=== PATIENT | female | born 2000 | race Caucasian/White ===

== ENCOUNTER 2021-03-26 06:34 | Emergency (ER) | payer MEDICAID ==
[2021-03-26 06:45] VITALS: TEMP 98.8
[2021-03-26 07:33] LABS: COLLECTION METHOD CLEAN CATCH
[2021-03-26 07:45] LABS: BASO % 0.5 % (0.0-2.0); EOS # 0.1 (0.0-0.7); EOS % 0.6 % (0-4.0); GRAN # 5.4 (1.4-6.5); GRAN % 69.7 % (42.2-75.2); HEMOGLOBIN 12.3 g/dl (12.0-15.0); LYMPH # 1.9 (1.2-3.4); LYMPH % 24.1 % (20.0-51.0); MEAN CELL VOLUME 83 fl (80.0-95.0); MEAN CORPUSCULAR HEMOGLOBIN 30 pg (26.0-32.0); MEAN CORPUSCULAR HGB CONC 36 g/dl (33.0-37.0); MONO # 0.4 (0.1-0.6); MONO % 4.8 % (1.7-9.3); PLATELET COUNT 253 K/mm3 (130-400); RED BLOOD COUNT 4.06 M/mm3 (4.10-5.30); REDCELL DISTRIBUTION WIDTH-CV 12.3 % (11.5-14.5)
[2021-03-26 07:47] LABS: HEMATOCRIT 33.8 % (35.0-45.0)
[2021-03-26 07:48] LABS: MUCOUS Present /lpf; PH 5 (5-8); URINE APPEARANCE Hazy; URINE BACTERIA Rare /hpf; URINE BILIRUBIN Negative (NEGATIVE); URINE BLOOD Negative (NEGATIVE); URINE COLOR Amber; URINE GLUCOSE Negative (NEGATIVE); URINE KETONE 2+ (NEGATIVE); URINE LEUKOCYTE ESTERASE 1+ (NEGATIVE); URINE NITRATE Negative (NEGATIVE); URINE PROTEIN(semi-quant) 2+ (NEGATIVE)
[2021-03-26 07:52] LABS: ALBUMIN 4.2 gm/dL (3.5-5.0); BILIRUBIN,TOTAL 0.8 mg/dL (0.0-1.0); CALCIUM 9.3 mg/dL (8.4-10.2); CREATININE, serum 0.48 (0.52-1.25); POTASSIUM 3.6 mmol/L (3.4-5.0); TOTAL PROTEIN 7.2 gm/dL (6.4-8.2)
[2021-03-26] MEDS ORDERED: CEPHALEXIN500 M1 PO (08:17)
[2021-03-26 08:38] VITALS: BP 95/50; PULSE 78
== END 2021-03-26 08:38 | disposition home or self-care (01) ==
LOC: COL.ER 06:34
PROVIDERS: Emergency Medicine
DX: O21.0 Mild hyperemesis gravidarum (principal); O26.891 Other specified pregnancy related conditions, first trimester; R10.13 Epigastric pain; Z3A.10 10 weeks gestation of pregnancy
CPT/HCPCS: J2765; J7120

== ENCOUNTER 2021-03-27 06:51 | Emergency (ER) | payer MEDICAID ==
[~2021-03-27] VITALS: Ht 165.1 cm; Wt 59.1 kg
[~2021-03-27 06:51] MED LIST: CEPHALEXIN500 M1 PO
[2021-03-27 06:59] VITALS: TEMP 98.3
[2021-03-27 08:45] VITALS: BP 107/69; PULSE 89
[2021-03-28] MEDS ORDERED: ZOFRAN ODT4 MG PO ×2 (20:18→20:19)
== END 2021-03-27 08:45 | disposition home or self-care (01) ==
LOC: COL.ER 06:51
DX: O21.0 Mild hyperemesis gravidarum (principal); Z3A.10 10 weeks gestation of pregnancy; Z88.1 Allergy status to other antibiotic agents
CPT/HCPCS: J2765; J7120

== ENCOUNTER 2021-03-28 14:23 | Emergency (ER) | payer MEDICAID ==
[~2021-03-28] VITALS: Ht 152.4 cm; Wt 57.7 kg
[2021-03-28 15:21] VITALS: TEMP 98.3
[2021-03-28 16:43] LABS: BASO % 0.2 % (0.0-2.0); EOS % 0.2 % (0-4.0); GRAN # 9.5 (1.4-6.5); GRAN % 89.7 % (42.2-75.2); HEMOGLOBIN 12.9 g/dl (12.0-15.0); LYMPH # 0.8 (1.2-3.4); MEAN CELL VOLUME 83 fl (80.0-95.0); MEAN CORPUSCULAR HEMOGLOBIN 30 pg (26.0-32.0); MEAN CORPUSCULAR HGB CONC 36 g/dl (33.0-37.0); MONO # 0.2 (0.1-0.6); MONO % 1.6 % (1.7-9.3); PLATELET COUNT 261 K/mm3 (130-400); RED BLOOD COUNT 4.28 M/mm3 (4.10-5.30); REDCELL DISTRIBUTION WIDTH-CV 12.7 % (11.5-14.5)
[2021-03-28 16:46] LABS: ALBUMIN 4.4 gm/dL (3.5-5.0); BILIRUBIN,TOTAL 0.7 mg/dL (0.0-1.0); CALCIUM 9.2 mg/dL (8.4-10.2); CREATININE, serum 0.46 (0.52-1.25); POTASSIUM 3.8 mmol/L (3.4-5.0); TOTAL PROTEIN 7.7 gm/dL (6.4-8.2)
[2021-03-28 16:53] LABS: HEMATOCRIT 35.6 % (35.0-45.0)
[2021-03-28 17:07] LABS: COLLECTION METHOD CLEAN CATCH
[2021-03-28 17:17] LABS: MUCOUS Present /lpf; PH 5 (5-8); URINE APPEARANCE Cloudy; URINE BACTERIA Rare /hpf; URINE BILIRUBIN Negative (NEGATIVE); URINE BLOOD Negative (NEGATIVE); URINE COLOR Yellow; URINE GLUCOSE Negative (NEGATIVE); URINE KETONE 2+ (NEGATIVE); URINE LEUKOCYTE ESTERASE 1+ (NEGATIVE); URINE NITRATE Negative (NEGATIVE); URINE PROTEIN(semi-quant) 2+ (NEGATIVE); URINE RBC 0-2 /hpf; URINE UROBILINOGEN Negative (NEGATIVE)
[2021-03-28] MEDS ORDERED: ZOFRAN ODT4 MG PO ×2 (20:18→20:19)
[2021-03-28 20:32] VITALS: BP 118/70; PULSE 70
== END 2021-03-28 20:32 | disposition home or self-care (01) ==
LOC: COL.ER 14:23
PROVIDERS: Nurse Practitioner
DX: O21.0 Mild hyperemesis gravidarum (principal); Z3A.11 11 weeks gestation of pregnancy; Z88.1 Allergy status to other antibiotic agents
CPT/HCPCS: J2405; J2550; J7030

== ENCOUNTER 2021-09-06 05:49 | Outpatient (CLI) | payer MEDICAID ==
[~2021-09-06] VITALS: Ht 152.4 cm; Wt 61.8 kg
[~2021-09-06 05:49] MED LIST changes: +ZOFRAN ODT4 MG PO
--- NOTE | 2021-09-06 06:00 | NUR ---
G1 at 35 weeks gestation to LDR6 with boyfriend. She states that she went to the midnight service at [facility] and returned home around 0200. When she got home she started having contractions and back pain, she states that they have not gotten stronger but have continued to be regular. She reports good movement, denies leaking of fluid or vaginal bleeding. EFMs explained and applied, FHR 140 bpm and reactive, CTX q3 minutes per toco. VSS. SVE 2-3/75/-2. Plan of care reviewed.
[2021-09-06 06:10] VITALS: BP 116/68; PULSE 78; TEMP 97.3
[2021-09-06] MEDS ORDERED: PRENATAL (06:32)
--- NOTE | 2021-09-06 07:25 | NUR ---
Plan of care reviewed with betamethasone IM now and second dose tomorrow 09/07/21 morning discussed with pt and boyfriend at the bedside. Both verbalized an understanding, agreed with the plan and states no questions or concerns at this time.
[2021-09-06 07:40] VITALS: BP 108/68; PULSE 74
== END 2021-09-06 07:55 | disposition home or self-care (01) ==
LOC: LDRO 05:49
DX: O62.9 Abnormality of forces of labor, unspecified (principal); O26.893 Other specified pregnancy related conditions, third trimester; M54.9 Dorsalgia, unspecified; Z3A.35 35 weeks gestation of pregnancy
CPT/HCPCS: J0702

== ENCOUNTER 2021-09-07 07:38 | Outpatient (CLI) | payer MEDICAID ==
[~2021-09-07] VITALS: Ht 152.4 cm; Wt 61.8 kg
[~2021-09-07 07:38] MED LIST changes: +PRENATAL
--- NOTE | 2021-09-07 07:45 | NUR ---
0745- 35.1, G1L0 arrives on unit for second betamethasone injection. Ambulatory to LDR2 with SO. Reports normal movement. Denies LOF, VB, or regular contractions. 0745- EFM explained and placed. Assessment completed. VS obtained.
--- NOTE | 2021-09-07 08:07 | NUR ---
0807- Betamethasone 12mg given. See emar. 0815- Dr. Guevara at patient bedside. 0823- FHR reactive. EFM off. 0830- Discharge instructions reviewed with patient and SO who verbalize understanding. Ambulatory off unit.
[2021-09-07 08:30] VITALS: BP 108/61; PULSE 82
== END 2021-09-07 08:30 | disposition home or self-care (01) ==
LOC: LDRO 07:38
DX: O36.0130 Maternal care for anti-D [Rh] antibodies, third trimester, not applicable or unspecified (principal); Z3A.35 35 weeks gestation of pregnancy
CPT/HCPCS: J0702

== ENCOUNTER 2021-10-08 01:11 | Inpatient (IN) | payer MEDICAID ==
[~2021-10-08] VITALS: Ht 152.4 cm; Wt 64.5 kg
[2021-10-08] VITALS (30 sets, daily range): BP systolic 102–142; BP diastolic 52–75; PULSE 66–107; TEMP 98.1–98.7
[2021-10-08 02:16] LABS: BASO # 0.1 K/mm3 (0.0-0.2); BASO % 0.5 % (0.0-2.0); EOS # 0.1 K/mm3 (0.0-0.7); EOS % 0.9 % (0.0-4.0); GRAN # 8.2 K/mm3 (1.4-6.5); GRAN % 58.8 % (42.2-75.2); HEMOGLOBIN 12.1 g/dl (12.0-15.0); LYMPH # 4.7 K/mm3 (1.2-3.4); LYMPH % 33.7 % (20.0-51.0); MEAN CELL VOLUME 83 fl (80.0-95.0); MEAN CORPUSCULAR HEMOGLOBIN 30 pg (26-32); MEAN CORPUSCULAR HGB CONC 36 g/dl (33.0-37.0); MEAN PLATELET VOLUME 11.1 fl (7.4-10.4); MONO # 0.8 K/mm3 (0.1-0.6); MONO % 5.7 % (1.7-9.3); PLATELET COUNT 207 K/mm3 (130-400); RED BLOOD COUNT 4.09 M/mm3 (4.10-5.30); REDCELL DISTRIBUTION WIDTH-CV 12.7 % (11.5-14.5)
[2021-10-08 02:17] LABS: HEMATOCRIT 34.1 % (35.0-45.0)
--- NOTE | 2021-10-08 02:57 | NUR ---
C.Piter BOILERMAKER MECHANIC into room for epidural placement. Pt moved to edge of bed. See anesthesia record.
--- NOTE | 2021-10-08 03:30 | NUR ---
Pt reports " I think I have to go to the bathroom" SVE ant rim with bulging bag. Pt unaware of contractions and states "I didn't really feel very much with that check" Nunez catheter placed.. When returned to semi-fowlers 200cc emesis.
--- NOTE | 2021-10-08 10:05 | NUR ---
0738 A [place] SVE C/100/0 Dr Guevara on unit reviewing FHR strip. Bag examed and ruptured. SVE by Dr Guevara 10/100/+2. 0755 Patient begins pushing with contractions. This RN at bedside. 0829 Spontaneous vaginal delivery of viable female . bulb suctioned and stimulated. Cord clamped and cut. Infant to mother's chest. TysonJarocho Allan takes over care of . taken to warmer to be stimulated and suctioned. 0832 Spontaneous delivery of placenta. Pitocin bolus started per protocol. 1st degree perineal laceration repaired by Dr. Guevara. Fundal massage done. Midline/firm. Scant amt of bleeding noted. Safety precautions discussed. Erendira care done. Clean pad placed under patient. Plan of care discussed. Pt verbalizes understanding.
[2021-10-08] MEDS ORDERED: MOTRIN 800800 MG/TAB PO (16:29)
[2021-10-09 07:25] VITALS: BP 100/65; PULSE 62; TEMP 98.1
--- NOTE | 2021-10-09 09:52 | NUR ---
Initial visit attempt; Tunnel Elastic Operator Chainstitch left card of congratulations and God's blessings for the of their daughter. Family resting. Tunnel Elastic Operator Chainstitch left card letting family know of the availability of Spiritual Care at our hospital.
== END 2021-10-09 14:25 | disposition home or self-care (01) | DRG 807 ==
LOC: LDRO 01:11 → OB 01:20 → LDR 01:20 → OB 13:44
PROVIDERS: Obstetrics & Gynecology; ADMIT Obstetrics & Gynecology
PROC: 10E0XZZ Delivery of Products of Conception, External Approach (ICD-10-PCS; principal; 2021-10-08)
PROC: 0HQ9XZZ Repair Perineum Skin, External Approach (ICD-10-PCS; 2021-10-08)
PROC: 0UQMXZZ Repair Vulva, External Approach (ICD-10-PCS; 2021-10-08)
DX: O77.0 Labor and delivery complicated by meconium in amniotic fluid (principal); Z37.0 Single live birth; O76 Abnormality in fetal heart rate and rhythm complicating labor and delivery; O62.1 Secondary uterine inertia; O70.0 First degree perineal laceration during delivery; Z3A.39 39 weeks gestation of pregnancy
CPT/HCPCS: J2590; J7120

== ENCOUNTER 2021-10-10 23:03 | Emergency (ER) | payer MEDICAID ==
[~2021-10-10] VITALS: Ht 152.4 cm; Wt 63.6 kg
[~2021-10-10 23:03] MED LIST changes: +MOTRIN 800800 MG/TAB PO
[2021-10-10 23:43] LABS: COLLECTION METHOD CLEAN CATCH
[2021-10-11 00:03] LABS: ALBUMIN 2.8 gm/dL (3.5-5.0); BILIRUBIN,TOTAL 0.4 mg/dL (0.2-1.2); C-REACTIVE PROTEIN 6.68 mg/dL (0.00-0.50); CALCIUM 8.4 mg/dL (8.4-10.2); CREATININE, serum 0.71 mg/dL (0.57-1.11); POTASSIUM 4.2 mmol/L (3.5-4.5); TOTAL PROTEIN 6.3 gm/dL (6.2-8.1)
[2021-10-11 00:09] LABS: BUDDING YEAST Present (NOT PRESENT); MUCOUS Present (NOT PRESENT); PH 7 (5-8); URINE APPEARANCE Hazy (CLEAR/HAZY); URINE BACTERIA None Seen /hpf (NONE SEEN); URINE BILIRUBIN Negative (NEGATIVE); URINE BLOOD 3+ (NEGATIVE); URINE COLOR Yellow (YELLOW); URINE GLUCOSE Negative (NEGATIVE); URINE KETONE Negative (NEGATIVE); URINE LEUKOCYTE ESTERASE 3+ (NEGATIVE); URINE NITRATE Negative (NEGATIVE); URINE PROTEIN(semi-quant) 1+ (NEGATIVE); URINE RBC >50 /hpf (0-2); URINE UROBILINOGEN Negative (NEGATIVE)
[2021-10-11 00:32] LABS: BASO % 0.3 % (0.0-2.0); EOS # 0.2 K/mm3 (0.0-0.7); EOS % 1.1 % (0.0-4.0); GRAN # 11.6 K/mm3 (1.4-6.5); GRAN % 82.2 % (42.2-75.2); HEMOGLOBIN 12.2 g/dl (12.0-15.0); LYMPH # 1.7 K/mm3 (1.2-3.4); LYMPH % 12.4 % (20.0-51.0); MEAN CELL VOLUME 85 fl (80.0-95.0); MEAN CORPUSCULAR HEMOGLOBIN 30 pg (26-32); MEAN CORPUSCULAR HGB CONC 36 g/dl (33.0-37.0); MEAN PLATELET VOLUME 11.1 fl (7.4-10.4); MONO # 0.5 K/mm3 (0.1-0.6); MONO % 3.4 % (1.7-9.3); PLATELET COUNT 215 K/mm3 (130-400); RED BLOOD COUNT 4.05 M/mm3 (4.10-5.30); REDCELL DISTRIBUTION WIDTH-CV 13.1 % (11.5-14.5)
[2021-10-11 00:33] LABS: HEMATOCRIT 34.4 % (35.0-45.0)
[2021-10-11] MEDS ORDERED: CEPHALEXIN500 M1 PO (01:36)
[2021-10-11 02:25] VITALS: BP 116/71; PULSE 92; TEMP 98.7
== END 2021-10-11 02:30 | disposition home or self-care (01) ==
LOC: COL.ER 23:03
PROVIDERS: Emergency Medicine
DX: O86.20 Urinary tract infection following delivery, unspecified (principal); R00.0 Tachycardia, unspecified; D72.829 Elevated white blood cell count, unspecified; Z20.822 Contact with and (suspected) exposure to COVID-19; Z88.1 Allergy status to other antibiotic agents
CPT/HCPCS: J0692; J1885; J7030

== ENCOUNTER 2021-10-11 20:09 | Emergency (ER) | payer MEDICAID ==
[~2021-10-11] VITALS: Ht 165.1 cm; Wt 61.4 kg
[2021-10-11 21:02] LABS: BASO % 0.4 % (0.0-2.0); EOS % 0.1 % (0.0-4.0); GRAN # 6.9 K/mm3 (1.4-6.5); GRAN % 88.9 % (42.2-75.2); HEMOGLOBIN 11.4 g/dl (12.0-15.0); LYMPH # 0.6 K/mm3 (1.2-3.4); LYMPH % 7.3 % (20.0-51.0); MEAN CELL VOLUME 85 fl (80.0-95.0); MEAN CORPUSCULAR HEMOGLOBIN 30 pg (26-32); MEAN CORPUSCULAR HGB CONC 35 g/dl (33.0-37.0); MEAN PLATELET VOLUME 10.2 fl (7.4-10.4); MONO # 0.2 K/mm3 (0.1-0.6); MONO % 2.5 % (1.7-9.3); PLATELET COUNT 154 K/mm3 (130-400); RED BLOOD COUNT 3.84 M/mm3 (4.10-5.30); REDCELL DISTRIBUTION WIDTH-CV 13.3 % (11.5-14.5)
[2021-10-11 21:03] LABS: HEMATOCRIT 32.8 % (35.0-45.0)
[2021-10-11 21:21] LABS: ALBUMIN 2.6 gm/dL (3.5-5.0); BILIRUBIN,TOTAL 0.8 mg/dL (0.2-1.2); C-REACTIVE PROTEIN 17.79 mg/dL (0.00-0.50); CALCIUM 8.1 mg/dL (8.4-10.2); CREATININE, serum 0.68 mg/dL (0.57-1.11); POTASSIUM 3.7 mmol/L (3.5-4.5); TOTAL PROTEIN 5.9 gm/dL (6.2-8.1)
[2021-10-11 21:36] VITALS: TEMP 101
[2021-10-11 21:53] VITALS: BP 129/84; PULSE 89
== END 2021-10-11 21:53 | disposition home or self-care (01) ==
LOC: COL.ER 20:09
PROVIDERS: Nurse Practitioner
DX: N39.0 Urinary tract infection, site not specified (principal); Z88.1 Allergy status to other antibiotic agents
CPT/HCPCS: J7030

== ENCOUNTER 2022-04-18 04:01 | Emergency (ER) | payer MEDICAID ==
[~2022-04-18] VITALS: Ht 152.4 cm; Wt 63.6 kg
[2022-04-18 04:10] VITALS: TEMP 98.1
[2022-04-18 04:20] LABS: BASO # 0.1 K/mm3 (0.0-0.2); BASO % 0.7 % (0.0-2.0); EOS # 0.3 K/mm3 (0.0-0.7); EOS % 3.1 % (0.0-4.0); GRAN # 3.6 K/mm3 (1.4-6.5); GRAN % 40.1 % (42.2-75.2); HEMATOCRIT 39.9 % (37.0-47.0); HEMOGLOBIN 14.4 g/dl (12.5-16.0); LYMPH # 4.5 K/mm3 (1.2-3.4); LYMPH % 49.9 % (20.0-51.0); MEAN CELL VOLUME 84 fl (80.0-100.0); MEAN CORPUSCULAR HEMOGLOBIN 30 pg (27-31); MEAN CORPUSCULAR HGB CONC 36 g/dl (33.0-37.0); MEAN PLATELET VOLUME 10.5 fl (7.4-10.4); MONO # 0.5 K/mm3 (0.1-0.6); PLATELET COUNT 304 K/mm3 (130-400); RED BLOOD COUNT 4.74 M/mm3 (4.10-5.30); REDCELL DISTRIBUTION WIDTH-CV 11.9 % (11.5-14.5)
[2022-04-18 04:38] LABS: BILIRUBIN,TOTAL 0.3 mg/dL (0.2-1.2); CALCIUM 9.2 mg/dL (8.4-10.2); CREATININE, serum 0.79 mg/dL (0.57-1.11); POTASSIUM 3.3 mmol/L (3.5-4.5); TOTAL PROTEIN 7.3 gm/dL (6.2-8.1)
[2022-04-18 04:42] LABS: COLLECTION METHOD CLEAN CATCH
[2022-04-18 04:54] LABS: MUCOUS Present (NOT PRESENT); PH 5 (5-8); URINE APPEARANCE Hazy (CLEAR/HAZY); URINE BACTERIA None Seen /hpf (NONE SEEN); URINE BLOOD 2+ (NEGATIVE); URINE COLOR Yellow (YELLOW); URINE GLUCOSE Negative (NEGATIVE); URINE KETONE Negative (NEGATIVE); URINE NITRATE Negative (NEGATIVE); URINE PROTEIN(semi-quant) Negative (NEGATIVE); URINE UROBILINOGEN Negative (NEGATIVE)
[2022-04-18] MEDS ORDERED: ZOFRAN ODT4 MG PO (06:22)
[2022-04-18 07:20] VITALS: BP 115/95; PULSE 87
== END 2022-04-18 07:40 | disposition home or self-care (01) ==
LOC: COL.ER 04:01
PROVIDERS: Emergency Medicine
DX: K80.50 Calculus of bile duct without cholangitis or cholecystitis without obstruction (principal); Z32.02 Encounter for pregnancy test, result negative; Z28.310 Unvaccinated for COVID-19
CPT/HCPCS: J0696; J2270; J2405; J7120; Q9967

== ENCOUNTER → 2022-04-19 | Outpatient (CLI) | payer MEDICAID ==
[~2022-04-19] MED LIST changes: +NORCO 325 MG-51 TAB PO
== END ==
LOC: COL.RAD 08:07
DX: K80.20 Calculus of gallbladder without cholecystitis without obstruction (principal)

== ENCOUNTER 2022-05-14 05:46 | Day surgery (SDC) | payer MEDICAID ==
[2022-05-14] VITALS (8 sets, daily range): BP systolic 105–122; BP diastolic 56–86; PULSE 88–119; TEMP 98.5–98.7
[~2022-05-14] VITALS: Ht 152.4 cm; Wt 69.1 kg
[~2022-05-14 05:46] MED LIST changes: -NORCO 325 MG-51 TAB PO
[2022-05-14] MEDS ORDERED: NORCO 325 MG-51 TAB PO (08:08)
--- NOTE | 2022-05-14 10:10 | NUR ---
PATIENT RETURNS TO ROOM 1 PER CART FROM PACU ACCOMPANIED BY BHARAT KYLE AND IS AWAKE AND ALERT. TEMP 98.9 AND ROOM AIR SATS 99%. BANDAIDS X4 ON ABDOMEN CLEAN AND DRY. DROWSY AND AROUSES TO VERBAL STIMULI. FRIEND IN ROOM. CALL LIGHT IN REACH AND SIDERAILS UP X2. IV FLUIDS INFUSING AT 125CC/HR AND SITE IS FREE OF REDNESS OR SWELLING.
--- NOTE | 2022-05-14 10:25 | NUR ---
CONTINUES TO REST WITHOUT COMPLAINTS AND NOT DISTURBED.
--- NOTE | 2022-05-14 10:40 | NUR ---
MORE AWAKE NOW BUT RETURNS EASILY TO SLEEP.
--- NOTE | 2022-05-14 10:55 | NUR ---
NOT DISTURBED AND CONTINUES TO REST.
--- NOTE | 2022-05-14 11:10 | NUR ---
BANDAIDS DRY ON THE ABDOMEN X4.
--- NOTE | 2022-05-14 11:40 | NUR ---
CONTINUES TO REST WITHOUT COMPLAINTS OF PAIN OR NAUSEA. STATES THAT SHE FEELS SLEEPY.
--- NOTE | 2022-05-14 12:15 | NUR ---
AWAKE AND DRINKING GRAPE JUICE AND WATER. OFFERS NO COMPLAINTS OF PAIN.
--- NOTE | 2022-05-14 13:10 | NUR ---
ASSISTED UP TO THE BATHROOM. GAIT STEADY. IV TO INT. VOIDS AND RETURNS TO ROOM. STATES THAT SHE IS HAVING PAIN AT 3/10. EATING APPLESAUCE NOW. WILL MEDICATE WITH NORCO AND PATIENT AGREES TO THIS.
--- NOTE | 2022-05-14 13:23 | NUR ---
MEDICATED WITH NORCO 5MG ONE TAB. DENIES NAUSEA.
--- NOTE | 2022-05-14 14:00 | NUR ---
GIVEN DISMISSAL INSTRUCTIONS AND VOICES UNDERSTANDING OF THESE. INSTRUCTED THAT PAIN MEDICATION IS AVAILABLE TO HEEL COVERER MACHINE OPERATOR AT PHARMACY.
--- NOTE | 2022-05-14 14:13 | NUR ---
PATIENT DISMISSED TO HOME DRIVEN BY FRIEND PER PRIVATE VEHICLE AND TAKEN TO VEHICLE PER WHEELCHAIR AND ASSISTED INTO CAR WITH INSTRUCTIONS IN HAND.
== END 2022-05-14 14:13 | disposition home or self-care (01) ==
LOC: SDCO 05:46
DX: K80.10 Calculus of gallbladder with chronic cholecystitis without obstruction (principal)
CPT/HCPCS: J0690; J1100; J1170; J1885; J2250; J2405; J2550; J2704; J3010; J7120

== ENCOUNTER 2023-10-06 19:05 | Outpatient (CLI) | payer MEDICAID ==
[~2023-10-06] VITALS: Ht 152.4 cm; Wt 65.5 kg
[~2023-10-06 19:05] MED LIST changes: +NORCO 325 MG-51 TAB PO
--- NOTE | 2023-10-06 19:15 | NUR ---
1914- PT PRESENTS TO LDR COMPLAINING OF LEAKING FLUID AND CRAMPING, AMBULATORY TO ROOM LR6, CHANGED INTO GOWN. 1924- EFM X2 APPLIED. PT STATES SHE HAS HAD MORE DISCHARGE THAN NORMAL TODAY, DENIES VAGINAL BLEEDING. STATES SHE IS HAVING SOME CRAMPING BUT NO REGULAR CONTRACTIONS. ALSO STATES SHE IS FEELING BABY MOVE NORMALLY. PLAN OF CARE FOR LABOR CHECK DISCUSSED AND PT IS AGREEABLE AND CONSENTS TO VAGINAL EXAMS. 1929- AMNITRACE IS NEGATIVE, NO POOLING OF FLUID NOTED. SVE BY THIS NURSE . DISCUSSED WATCHING THE MONITOR FOR AN HOUR AND RECHECKING CERVIX. PT IS AGREEABLE WITH THIS. 1934- NURSING ADMISSION HISTORY AND ASSESSMENT COMPLETE. 1941- DR CHRISTIAN CALLS AND IS UPDATED CHARTED. ORDERS RECIEVED. 2011- PT OFF MONITOR TO GO TO BATHROOM. 2017- PT BACK TO BED. 2039- PT STATES HER CRAMPING IS THE SAME. SVE BY THIS NURSE WITH NO CHANGED. DISCUSSED WITH PT PLAN OF CARE FOR DISMISSAL AND SHE IS AGREEABLE WITH THIS. 2041- PT OFF MONITORS FOR DISMISSAL. 2099- DISMISSAL INSTRUCTIONS GIVEN. PT VERBALIZES UNDERSTANDING AND SIGNS PAPERWORK. PT DISMISSED TO HOME AMBULATORY ACCOMPANIED BY BOYFRIEND.
[2023-10-06 20:00] VITALS: BP 115/56; PULSE 89; TEMP 98.5
== END 2023-10-06 21:00 | disposition home or self-care (01) ==
LOC: LDRO 19:05
DX: O42.913 Preterm premature rupture of membranes, unspecified as to length of time between rupture and onset of labor, third trimester (principal); Z3A.36 36 weeks gestation of pregnancy

== ENCOUNTER 2023-10-15 23:09 | Inpatient (IN) | payer MEDICAID ==
[~2023-10-15] VITALS: Ht 152.4 cm; Wt 66.8 kg
[2023-10-15 23:45] VITALS: BP 124/72; PULSE 107; TEMP 99.3
[2023-10-15] MEDS ORDERED: LR 1,000 ML IV SCH (23:45)
[2023-10-16] VITALS (16 sets, daily range): BP systolic 94–134; BP diastolic 22–69; PULSE 70–107; TEMP 98.2–98.4
--- NOTE | 2023-10-16 | NUR ---
PT REQUESTING EPIDURAL AT THIS TIME.
[2023-10-16 00:07] LABS: BASO # 0.1 K/mm3 (0.0-0.2); BASO % 0.6 % (0.0-2.0); EOS # 0.1 K/mm3 (0.0-0.7); EOS % 1.5 % (0.0-4.0); GRAN % 63.4 % (42.2-75.2); HEMOGLOBIN 12.3 g/dl (12.5-16.0); LYMPH # 2.8 K/mm3 (1.2-3.4); LYMPH % 28.9 % (20.0-51.0); MEAN CELL VOLUME 84 fl (80.0-100.0); MEAN CORPUSCULAR HEMOGLOBIN 30 pg (27-31); MEAN CORPUSCULAR HGB CONC 35 g/dl (33.0-37.0); MEAN PLATELET VOLUME 11.5 fl (7.4-10.4); MONO # 0.5 K/mm3 (0.1-0.6); MONO % 5.3 % (1.7-9.3); PLATELET COUNT 199 K/mm3 (130-400); RED BLOOD COUNT 4.17 M/mm3 (4.10-5.30); REDCELL DISTRIBUTION WIDTH-CV 12.7 % (11.5-14.5)
[2023-10-16 00:11] LABS: HEMATOCRIT 35.1 % (37.0-47.0)
[2023-10-16] MEDS ORDERED: Ondansetron 4 MG/2 ML VIAL IV PRN ×2 (00:15→00:30)
--- NOTE | 2023-10-16 00:20 | NUR ---
PT SITTING UPRIGHT ON THE BEDSIDE. JEZ COVARRUBIAS IN ROOM TO PROVIDE REQUESTED EPIDURAL. THE PATIENT IS PREPPED AND SINGLE SHOT ADMINISTERED AT 0020. PT TOLERATED PROCEDURE AND REPOSITIONED TO WEDGE LEFT. NO OTHER CONCERNS.
[2023-10-16] MEDS ORDERED: ROPivacaine PF 0.2% 200 ML IV ONE (00:29)
[2023-10-16] MEDS ORDERED: Naloxone 0.4 MG/ML VIAL IV PRN ×2 (00:30→03:45)
[2023-10-16] MEDS ORDERED: diphenhydrAMINE 25 MG CAP PO PRN (00:30)
[2023-10-16] MEDS ORDERED: diphenhydrAMINE 50 MG/ML 1 ML VIAL IV PRN (00:30)
[2023-10-16] MEDS ORDERED: ePHEDrine 50 MG/10 ML VIAL IV PRN (00:30)
[2023-10-16] MEDS ORDERED: LR & Oxytocin 500 ML IV SCH (01:00)
--- NOTE | 2023-10-16 01:10 | NUR ---
0033: SVE PER THIS RN, ANTERIOR LIP. NOTIFIED PHYSICIAN OF PT STATUS AND THE URGE TO PUSH. SEE PHYSICIAN NOTIFICATION. 0050: ON THE UNIT. 0053: AT BEDSIDE, SVE: COMPLETE +2. PREPARING PT FOR DELIVERY. 0058: PUSHING BEGINS WITH . GOOD MATERNAL EFFORT. 0102: OF VIABLE MALE INFANT. PLACED ON MATERNAL ABD. DELAYED CORD CLAMP X2 PER . FOB CUT THE CORD. MOVED UP TO MATERNAL CHEST. CARE OF INFANT ASSUMED BY SAROJ SOUZA. CORD BLOOD OBTAINED AND SENT TO LAB. 0110: OF INTACT PLACENTA. PITOCIN STARTED PER HOSPITAL PROTOCOL AT 333MU/HR. ASSESSMENT OF PATIENT PER , PT IS INTACT. EPIDURAL PUMP TURNED OFF PER THIS RN. PERICARE PERFORMED PER THIS RN, PAD AND ICEPACK ON THE PERINEUM. WARM BLANKETS ON MOM AND . 0115: RECOVERY VITALS STARTED AT THIS TIME. NO OTHER CONCERNS REGARDING THIS PATIENT AT PRESENT TIME.
[2023-10-16] MEDS ORDERED: Magnes Hydrox (MOM) 80 MG/ML 30 ML CUP PO PRN (01:15)
[2023-10-16] MEDS ORDERED: Loratadine 10 MG TAB PO PRN (01:15)
[2023-10-16] MEDS ORDERED: oxyCODONE 5 MG TAB PO PRN (03:45)
[2023-10-16] MEDS ORDERED: Witch Hazel 50% Pads Bulk TUB TP PRN (03:45)
[2023-10-16] MEDS ORDERED: Measles/Mumps/Rubella Virus Vaccine Live w Diluent 0.5 ML VIAL SQ SCH (03:45)
[2023-10-16] MEDS ORDERED: Mag/Al Hydrox/Simeth Susp 30 ML CUP PO PRN (03:45)
[2023-10-16] MEDS ORDERED: Phenylephrine/Mineral Oil/Petrolatum 57 GM TUBE RC PRN (03:45)
--- NOTE | 2023-10-16 03:50 | NUR ---
PT AMBULATES TO THE BATHROOM. CLEAN GOWN ON, PERICARE COMPLETED. PT TRANSFERRED TO RM 208.
[2023-10-16] MEDS ORDERED: Ibuprofen 600 MG TAB PO SCH (04:00)
[2023-10-16] MEDS ORDERED: Acetaminophen 500 MG TAB PO SCH (04:00)
[2023-10-16] MEDS ORDERED: Sennosides/Docusate 8.6-50 MG TAB PO SCH (08:00)
--- NOTE | 2023-10-16 12:30 | NUR ---
THIS RN TAKES OVER CARE. THIS RN RECEIVED REPORT FROM KATHLEEN KYLE.
[2023-10-16] MEDS ORDERED: traZODone 50 MG TAB PO PRN (21:00)
[2023-10-17 09:00] VITALS: BP 112/78; PULSE 79; TEMP 98.2
[2023-10-17] MEDS ORDERED: Influenza Virus Vaccine, Quad '23-24 (6 MOS+) 0.5 ML SYRINGE IM SCH (09:00)
--- NOTE | 2023-10-17 10:10 | NUR ---
Initial visit; Parents thanked Services Mgr for offering congratulations and God's blessingss for the of their daughter. Services Mgr thanked family for choosing [facility].
--- NOTE | 2023-10-17 15:21 | NUR ---
DISCHARGE TEACHING COMPLETED. EDUCATED ON FOLLOW UP APPOINTMENT AND PRESCRIPTIONS. QUESTIONS INVITED AND ANSWERED.
== END 2023-10-17 15:35 | disposition home or self-care (01) | DRG 807 ==
LOC: LDRO 23:09 → LDR 23:44 → OB 23:44
PROVIDERS: Obstetrics & Gynecology; ADMIT Obstetrics & Gynecology
PROC: 10E0XZZ Delivery of Products of Conception, External Approach (ICD-10-PCS; principal; 2023-10-16)
DX: O80 Encounter for full-term uncomplicated delivery (principal); Z37.0 Single live birth; Z3A.38 38 weeks gestation of pregnancy; Z23 Encounter for immunization
CPT/HCPCS: J2405; J2795; J7120